=== PATIENT | male | born 1960 | race Caucasian/White ===

== ENCOUNTER 2019-03-18 19:46 | Emergency (ER) | payer BC ==
--- NOTE | 2019-03-18 20:06 | EDM.PDOC ---
ED HPI GENERAL MEDICAL PROBLEM - General Chief Complaint: Back Pain or Injury Stated Complaint: LEFT SIDE PAIN Time Seen by Provider: 03/18/19 20:04 - History of Present Illness INITIAL COMMENTS - FREE TEXT/NARRATIVE: 58-year-old male seen with left-sided pain. Yesterday the patient was shovelots of snow and develop some significant tightness in his left back from his shoulder on. Patient has not had injury like this in the past. This is not associated with chest pain chest pressure breathing difficulty shortness of breath or significant abdominal discomfort. He was seen in the walk-in clinic today started on Flexeril 10 mg one half tablet 3 times a day and ibuprofen he started this but is not really helping and he is not any loss of bowel or bladder control. ED ROS GENERAL - Review of Systems Review Of Systems: See Below Constitutional: Reports: No Symptoms HEENT: Reports: No Symptoms Respiratory: Reports: No Symptoms Cardiovascular: Reports: No Symptoms GI/Abdominal: Reports: No Symptoms : Reports: No Symptoms Musculoskeletal: Reports: Shoulder Pain, Back Pain Skin: Reports: No Symptoms Neurological: Reports: No Symptoms ED EXAM,LOWER BACK PAIN/INJURY - Physical Exam Exam: See Below Exam Limited By: No Limitations General Appearance: Alert, No Apparent Distress Head: Atraumatic, Normocephalic Neck: Normal Inspection, Supple, Non-Tender, Full Range of Motion Respiratory/Chest: No Respiratory Distress, Lungs Clear, Normal Breath Sounds Cardiovascular: Regular Rate, Rhythm, No Edema, No Murmur GI/Abdominal: Normal Bowel Sounds, Soft, Non-Tender Back Exam: Normal Inspection, Muscle Spasm (Muscle slight tightness on the left side paraspinous back muscles up into his chest and up over his shoulders especially on the left.). No: CVA Tenderness (L), CVA Tenderness (R) Extremities: Normal Inspection, Other (Straight leg raises doing his back pain any worse. He's had no loss of bowel or bladder control) Course - Re-Assessments/Exams Free Text/Narrative Re-Assessment/Exam: 03/18/19 20:35 I've recommended that he use full strength Flexeril 10 mg 3 times a day as tolerated with what work precautions given he needs himself 12 hours after using this medication before driving or returning to work he understands this and then use ibuprofen 800 mg 3 times a day with meals. He will try this area Departure - Departure Time of Disposition: 20:36 Disposition: Home, Self-Care 01 Clinical Impression: Muscle strain of left upper back, Strain of muscle, fascia and tendon of lower back, initial encounter - Discharge Information Referrals: PCP,None [Primary Care Provider] - Forms: ED Department Discharge Additional Instructions: Return to emergency room if any questions problems or worsening symptoms. Use of Flexeril 10 mg 3 times a day as needed for muscle spasm. When things calm down take one nightly for a while. Use your ibuprofen 800 mg 3 times a day with meals.
== END 2019-03-18 20:45 | disposition home or self-care (01) ==
LOC: JD.ED 19:46
DX: S29.012A Strain of muscle and tendon of back wall of thorax, initial encounter (principal); S39.012A Strain of muscle, fascia and tendon of lower back, initial encounter; Y93.H1 Activity, digging, shoveling and raking
CPT/HCPCS: 99282; 99283

== ENCOUNTER 2021-07-05 15:48 | Emergency (ER) | payer BC, OTHER ==
[2021-07-05] MEDS: Sodium Chloride 0.9% 10 ML Syringe FLUSH PRN (16:50)
== END 2021-07-05 18:20 | disposition home or self-care (01) ==
LOC: JD.ED 15:48
DX: S22.31XA Fracture of one rib, right side, initial encounter for closed fracture (principal); Z79.01 Long term (current) use of anticoagulants; Z72.0 Tobacco use; W01.0XXA Fall on same level from slipping, tripping and stumbling without subsequent striking against object, initial encounter
CPT/HCPCS: 71260; 71260-26; 74177; 74177-26; 99283-25